=== PATIENT | female | born 1965 | race African-American/Black ===

== ENCOUNTER → 2020-09-03 | Outpatient (CLI) | payer BC | END | disposition home or self-care (01) | LOC: PF 11:37 | PROVIDERS: ATTEND Internal Medicine Pulmonary Disease | DX: J44.9 Chronic obstructive pulmonary disease, unspecified (principal); T59.891A Toxic effect of other specified gases, fumes and vapors, accidental (unintentional), initial encounter; R06.00 Dyspnea, unspecified | CPT/HCPCS: 94010; 94727; 94729 ==